=== PATIENT | male | born 1965 | race Caucasian/White ===

== ENCOUNTER 2022-06-14 11:38 | Emergency (ER) | payer SELFPAY ==
[2022-06-14 11:50] VITALS: BP 134/82; PULSE 74; RESP 16; TEMP 36.2; O2SAT 99; BMI 27.2
[2022-06-14] MEDS: PANTOPRAZOLE 40 MG VIAL IV ×2 (12:19→13:37)
[2022-06-14 12:24] LABS: Add Manual Diff / Slide Review NO; Basophils Absolute Auto 0 /uL (0-100); Basophils Percent Auto 0.4 % (0-2); Eosinophils Absolute Auto 300 /uL (0-450); Eosinophils Percent Auto 5.3 % (2-4); Hematocrit 42.5 % (41-53); Hemoglobin 14.9 g/dL (13.5-17.5); Lymphocytes Absolute Auto 1000 /uL (1100-4500); Lymphocytes Percent Auto 15.9 % (25-40); Mean Corpuscular Hemoglobin 30.8 PG (26-34); Mean Corpuscular Volume 87.9 fL (80-100); Monocytes Absolute Auto 500 /uL (0-900); Monocytes Percent Auto 8.4 % (3-14); Neutrophils Absolute Auto 4500 /uL (1500-7000); Platelet Count 267 X10^3/uL (150-400); Red Blood Cell Count 4.84 X10^6/uL (4.5-5.9); Red Cell Distribution Width 12.8 % (11.6-14.8); White Blood Cell Count 6.4 X10^3/uL (4.5-11.0)
[2022-06-14 12:38] LABS: Alanine Aminotransferase 25 IU/L (<50); Albumin 4.7 g/dL (3.5-5.0); Albumin Globulin Ratio 1.6 (1.0-2.8); Alkaline Phosphatase 84 U/L (38-126); Aspartate Aminotransferase 25 IU/L (17-59); BUN Creatinine Ratio 20.8 (6-22); Bilirubin Total 0.9 mg/dL (0.2-1.3); Blood Urea Nitrogen 22 mg/dL (9-20); Calcium 9.2 mg/dL (8.4-10.2); Carbon Dioxide 22 mmol/L (22-32); Chloride 105 mmol/L (98-107); Estimated Glomerular Filt Rate > 60 mL/min (>60); Glucose 98 mg/dL (70-100); HEMOLYSIS < 15 (0-50); Potassium 4.3 mmol/L (3.4-5.1); Sodium 139 mmol/L (137-145); Total Protein 7.7 g/dL (6.3-8.2)
[2022-06-14 12:43] LABS: INR 1.1 (0.9-1.3); Prothrombin Time 12.5 SECONDS (10.1-12.7)
[2022-06-14 12:46] LABS: PTT Partial Thromboplastin Tim 35 SECONDS (26-36)
--- NOTE | 2022-06-14 14:39 | ED_ITS ---
HPI - GI Bleed General Chief complaint: GI Bleed Stated complaint: rectal bleeding since 2am Time Seen by Provider: 06/14/22 12:59 Source: patient Mode of arrival: Ambulatory Limitations: no limitations History of Present Illness HPI Narrative: The patient had been constipated for about 1 week. His bowels started working a meal tonight. He initially had firm BMs, then diarrhea. He would bright red blood with a bowel movement. Toward the end about moving there may have been dark blood. He has epigastric pain, no nausea vomiting. He has abdominal cramping throughout the night that is now improved. He is not normally constipated. He is no history of ulcers or GI bleed. He is no fever chills. He is no urinary complaints. He does have a prior history of anal fissure. Related Data Previous Rx's Medication Instructions Recorded pantoprazole 20 mg tablet,delayed 20 mg PO QDAY #90 tabs 01/10/16 release acyclovir 800 mg tablet 800 mg PO BID #60 tabs 08/29/16 alprazolam 0.25 mg tablet 0.25 mg OR SEE INSTRUCTIONS PRN 10/27/16 #30 tabs quetiapine 50 mg tablet 50 mg PO SEE INSTRUCTIONS #15 tabs 11/13/16 albuterol sulfate 90 mcg/actuation 0 puff INH SEE INSTRUCTIONS PRN #1 11/21/16 aerosol inhaler (Ventolin HFA) puff pramipexole 0.5 mg tablet (Mirapex) 0.5 mg OR HS #30 tabs 11/24/16 quetiapine 300 mg tablet (Seroquel) 300 mg PO SEE INSTRUCTIONS #45 tabs 11/24/16 lamotrigine 150 mg tablet 150 mg PO BID #120 tabs 12/12/16 propranolol 40 mg tablet 40 mg PO BID #60 tabs 12/12/16 tramadol 50 mg tablet 50 mg PO SEE INSTRUCTIONS PRN ##90 12/29/16 dicyclomine 10 mg capsule 10 mg PO Q8HP PRN #180 caps 01/25/17 Allergies Allergy/AdvReac Type Severity Reaction Status Date / Time risperidone [RISPERIDONE] Allergy Severe EPS Verified 06/14/22 11:50 SYMPTOMS hydrocodone [HYDROCODONE] AdvReac Intermediate ANXIETY, Verified 06/14/22 11:50 SLEEPLESSNESS ziprasidone [ZIPRASIDONE] AdvReac Mild DROWZINESS Verified 06/14/22 11:50 Review of Systems Constitutional Constitutional: Denies body ache(s), Denies chills, Denies fatigue, Denies fever(s), Denies headache(s) and Denies weakness Eyes Eyes: Denies change in vision ENT Ears, Nose, Mouth, and Throat: Denies dizziness, Denies headache(s), Denies lip swelling, Denies sinus pain and Denies sore throat Cardiovascular Cardiovascular: Denies chest pain, Denies syncope, Denies rapid heart rate, Denies pedal edema and Denies dyspnea Respiratory Respiratory: Denies chest congestion, Denies cough and Denies dyspnea Gastrointestinal Gastrointestinal: Reports as per HPI Genitourinary Genitourinary: Denies dysuria, Denies urinary frequency and Denies urinary hesitancy Musculoskeletal Musculoskeletal: Denies back pain and Denies arthralgias Integumentary/Breasts Skin/Breast: Denies lesions and Denies rash Neurologic Neurologic: Denies confusion, Denies dizziness, Denies syncope, Denies headache(s) and Denies weakness Psychiatric Psychiatric: Denies anxiety, Denies confusion and Denies depression Endocrine Endocrine: Denies fatigue Hematologic/Lymphatic On Anticoagulants: No Allergic/Immunologic Allergic/Immunologic: Denies lip swelling Patient History Medical History (Updated 06/14/22 @ 19:10 by Todd Sorensen MD) Anal fistula (02/10/05) Bipolar disorder (04/13/04) Mixed hyperlipidemia (12/29/04) Family History Father Age: 78 Essential hypertension Social History Smoking Status: Never smoker Smoking Status: Never smoker Substance Use Type: marijuana Exam Initial Vital Signs Initial Vital Signs: Vital Signs Temperature 97.2 F L 06/14/22 11:50 Pulse Rate 74 06/14/22 11:50 Respiratory Rate 16 06/14/22 11:50 Blood Pressure 134/82 06/14/22 11:50 Pulse Oximetry 99 06/14/22 11:50 Oxygen Delivery Method 06/14/22 11:50 Const General: cooperative, healthy appearing, comfortable, well developed and well groomed Nutritional Appearance: average body habitus [facility] Head: normocephalic and atraumatic Face and sinus: normal facial exam Mouth: oral mucosae normal Eyes General: Yes appearance normal, both eyes and all related structures Neck Neck: normal visual inspection and No JVD Resp Effort & Inspection: normal respiratory effort Auscultation: clear to auscultation bilaterally Cardio Palpation: normal PMI Rate: regular rate Rhythm: regular rhythm Heart Sounds: no murmurs GI Rectal Exam: normal sphincter tone and fissure (Shallow anal fissure. No active bleeding.) Other: Mild epigastric tenderness with palpation. No distension. No guarding or rebound. No masses. Normal bowel sounds. Abdomen is otherwise benign. Back/Spine/Pelvis Back: normal to inspection Skin General: no rashes or lesions noted and pallor Neuro General: patient alert, patient awake and patient oriented x3 Course Course Course Narrative: The patient currently takes AcipHex. He is on stool softeners. Has a shallow anal fissure, but is epigastric pain, concerning for PUD. Repeat H&H stable. There is no significant active bleed. He is encouraged to continue mass effects. Should be drinking plenty of fluids and be on a high-fiber diet. He is advised to follow-up with his PCM for recheck in 1-2 weeks. Orders Ordered: ED Orders 06/14/22 12:11 Complete Blood Count AUTO DIFF Stat Comprehensive Metabolic Panel Stat Partial Thromboplastin Time Stat Prothrombin Time INR Stat Type and Screen Stat 06/14/22 12:36 EKG-12 Lead Stat 06/14/22 15:05 CBC Auto Diff [Complete Blood Count AUTO DIFF] Stat Discontinued Medications Ondansetron HCl (Ondansetron 4 Mg/2 Ml Inj) 4 mg IV NOW PRN PRN Reason: Nausea And Vomiting Ondansetron HCl (Ondansetron 4 Mg Odt) 4 mg SL NOW PRN PRN Reason: Nausea And Vomiting Pantoprazole Sodium (Pantoprazole 40 Mg Vial) 80 mg IV NOW ONE Stop: 06/14/22 11:58 Last Admin: 06/14/22 12:01 Dose: Not Given Documented By: JOSÉ MANUEL Pantoprazole Sodium (Pantoprazole 40 Mg Vial) 40 mg IV NOW ONE Stop: 06/14/22 12:02 Last Admin: 06/14/22 12:19 Dose: 40 mg Documented By: JOSÉ MANUEL Pantoprazole Sodium (Pantoprazole 40 Mg Vial) 40 mg IV NOW ONE Stop: 06/14/22 13:33 Last Admin: 06/14/22 13:37 Dose: 40 mg Documented By: RB Vital Signs Vital signs: Vital Signs - 8 hr 06/14/22 11:50 06/14/22 15:53 Temperature 97.2 F L Pulse Rate 74 70 Respiratory Rate 16 16 Blood Pressure 134/82 124/69 Pulse Oximetry 99 97 Oxygen Delivery Method Room Air Room Air MDM - GI Bleed Lab Data 06/14/22 12:11 06/14/22 12:11 Labs: Lab Results 06/14/22 06/14/22 06/14/22 Range/Units 12:11 12:11 12:11 WBC 6.4 (4.5-11.0) X10^3/uL RBC 4.84 (4.5-5.9) X10^6/uL Hgb 14.9 (13.5-17.5) g/dL Hct 42.5 (41-53) % MCV 87.9 (80-100) fL MCH 30.8 (26-34) PG MCHC 35.0 (30-36) % RDW 12.8 (11.6-14.8) % Plt Count 267 (150-400) X10^3/uL Neut % (Auto) 70.0 (50-75) % Lymph % (Auto) 15.9 L (25-40) % Ashe % (Auto) 8.4 (3-14) % Eos % (Auto) 5.3 H (2-4) % Baso % (Auto) 0.4 (0-2) % Neut # (Auto) 4500 (7604-1267) /uL Lymph # (Auto) 1000 L (4709-6035) /uL Ashe # (Auto) 500 (0-900) /uL Eos # (Auto) 300 (0-450) /uL Baso # (Auto) 0 (0-100) /uL PT 12.5 (10.1-12.7) SECONDS INR 1.1 (0.9-1.3) APTT 35 (26-36) SECONDS Sodium 139 (137-145) mmol/L Potassium 4.3 (3.4-5.1) mmol/L Chloride 105 (98-107) mmol/L Carbon Dioxide 22 (22-32) mmol/L BUN 22 H (9-20) mg/dL Creatinine 1.06 (0.66-1.25) mg/dL Estimated GFR > 60 (>60) mL/min BUN/Creatinine Ratio 20.8 (6-22) Glucose 98 (70-100) mg/dL Calcium 9.2 (8.4-10.2) mg/dL Total Bilirubin 0.9 (0.2-1.3) mg/dL AST 25 (17-59) IU/L ALT 25 (<50) IU/L Alkaline Phosphatase 84 (38-126) U/L Total Protein 7.7 (6.3-8.2) g/dL Albumin 4.7 (3.5-5.0) g/dL Globulin 3.0 (1.7-4.1) g/dL Albumin/Globulin Ratio 1.6 (1.0-2.8) Blood Type Antibody Screen 06/14/22 06/14/22 Range/Units 12:11 15:05 WBC 6.0 (4.5-11.0) X10^3/uL RBC 4.62 (4.5-5.9) X10^6/uL Hgb 14.3 (13.5-17.5) g/dL Hct 40.7 L (41-53) % MCV 88.2 (80-100) fL MCH 30.8 (26-34) PG MCHC 35.0 (30-36) % RDW 13.0 (11.6-14.8) % Plt Count 280 (150-400) X10^3/uL Neut % (Auto) 64.1 (50-75) % Lymph % (Auto) 21.1 L (25-40) % Ashe % (Auto) 8.7 (3-14) % Eos % (Auto) 5.7 H (2-4) % Baso % (Auto) 0.4 (0-2) % Neut # (Auto) 3900 (8888-8177) /uL Lymph # (Auto) 1300 (2229-6312) /uL Ashe # (Auto) 500 (0-900) /uL Eos # (Auto) 300 (0-450) /uL Baso # (Auto) 0 (0-100) /uL PT (10.1-12.7) SECONDS INR (0.9-1.3) APTT (26-36) SECONDS Sodium (137-145) mmol/L Potassium (3.4-5.1) mmol/L Chloride (98-107) mmol/L Carbon Dioxide (22-32) mmol/L BUN (9-20) mg/dL Creatinine (0.66-1.25) mg/dL Estimated GFR (>60) mL/min BUN/Creatinine Ratio (6-22) Glucose (70-100) mg/dL Calcium (8.4-10.2) mg/dL Total Bilirubin (0.2-1.3) mg/dL AST (17-59) IU/L ALT (<50) IU/L Alkaline Phosphatase (38-126) U/L Total Protein (6.3-8.2) g/dL Albumin (3.5-5.0) g/dL Globulin (1.7-4.1) g/dL Albumin/Globulin Ratio (1.0-2.8) Blood Type O Positive Antibody Screen Negative Discharge Plan Departure Patient Disposition: Home Clinical Impression: Acute anal fissure, Epigastric abdominal pain Instructions: Anal Fissure, DI for Epigastric Pain Activity Restrictions/Additional Instructions: Continue current medications. You should be on a high-fiber diet. Avoid constipation. Recheck with your doctor in about 10 days. Return here if you have worsening abdominal symptoms or suggestion of increased bleeding. Prescriptions: No Action pantoprazole 20 MG tablet,delayed release (DR/EC) 20 mg PO QDAY Qty: 90 1RF acyclovir 800 MG tablet 800 mg PO BID Qty: 60 11RF alprazolam 0.25 MG tablet 0.25 mg OR SEE INSTRUCTIONS PRNQty: 30 2RF quetiapine 50 MG tablet 50 mg PO SEE INSTRUCTIONS Qty: 15 3RF albuterol sulfate [Ventolin HFA] 90 MCG/PUFF HFA aerosol inhaler 0 puff INH SEE INSTRUCTIONS PRNQty: 1 1RF quetiapine [Seroquel] 300 MG tablet 300 mg PO SEE INSTRUCTIONS Qty: 45 2RF pramipexole [Mirapex] 0.5 MG tablet 0.5 mg OR HS Qty: 30 1RF lamotrigine 150 MG tablet 150 mg PO BID Qty: 120 1RF propranolol 40 MG tablet 40 mg PO BID Qty: 60 1RF tramadol 50 MG tablet 50 mg PO SEE INSTRUCTIONS PRNQty: 90 2RF dicyclomine 10 MG capsule 10 mg PO Q8HP PRNQty: 180 1RF Referrals: Carmen Rdz ARNP [Primary Care Provider] - Stand Alone Forms: Patient Portal/API
[2022-06-14 15:13] LABS: Add Manual Diff / Slide Review NO; Basophils Absolute Auto 0 /uL (0-100); Basophils Percent Auto 0.4 % (0-2); Eosinophils Absolute Auto 300 /uL (0-450); Eosinophils Percent Auto 5.7 % (2-4); Hematocrit 40.7 % (41-53); Hemoglobin 14.3 g/dL (13.5-17.5); Lymphocytes Absolute Auto 1300 /uL (1100-4500); Lymphocytes Percent Auto 21.1 % (25-40); Mean Corpuscular Hemoglobin 30.8 PG (26-34); Mean Corpuscular Volume 88.2 fL (80-100); Monocytes Absolute Auto 500 /uL (0-900); Monocytes Percent Auto 8.7 % (3-14); Neutrophils Absolute Auto 3900 /uL (1500-7000); Neutrophils Percent Auto 64.1 % (50-75); Platelet Count 280 X10^3/uL (150-400); Red Blood Cell Count 4.62 X10^6/uL (4.5-5.9)
[2022-06-14 15:53] VITALS: BP 124/69; PULSE 70; RESP 16; O2SAT 97
== END 2022-06-14 16:08 | disposition home or self-care (01) ==
PROVIDERS: Emergency Provider Emergency Medicine; Family Provider Family Medicine; PCP Nurse Practitioner Family
DX: K60.0 Acute anal fissure (principal); R10.13 Epigastric pain
CPT/HCPCS: 36415; 80053; 85025; 85610; 85730; 86850; 86900; 86901; 93005; 96374; 96376; 99284; C9113